=== PATIENT | female | born 1995 | race Caucasian/White ===

== ENCOUNTER 2017-10-07 14:57 | Emergency (ER) | payer OTHER ==
[~2017-10-07] VITALS: Ht 162.6 cm; Wt 125.8 kg
[2017-10-07 15:01] VITALS: TEMP 36.8; Ht 162.6 cm; Wt 125.8 kg
[2017-10-07 15:53] LABS: PREG INTERNAL NEGATIVE QC NEG CLEAR BACKGROUND; PREG INTERNAL POSITIVE QC POS CONTROL LINE
--- NOTE | 2017-10-07 16:15 | EMERGENCY ROOM VISIT NOTE ---
History First contact with patient: 15:03 Chief Complaint: TEST REQUEST Stated Complaint: TEST History of Present Illness The patient is a 22 year old female who presents to the Emergency Room with complaints of " test request". The patient states that she has had a faint positive urine test that was performed about 2 days ago. She states that her last menstrual cycle was at the end of July. She would like a blood confirmatory test for . She denies any other complaints. There has been no abdominal pain, vaginal bleeding or cramping. Review of Systems A complete 6-point Review of Systems was discussed with the patient, with pertinent positives and negatives listed in the History of Present Illness. All remaining Review of Systems questions can be considered negative unless otherwise specified. Past Medical/Surgical History Surgical Problems: (1) S/P ACL repair Family History Patient reports no known family medical history. Social History Smoking Status: Current Every Day Smoker Alcohol Use: none Drug Use: none Marital Status: single Housing Status: lives with family Occupation Status: unemployed, student Current/Historical Medications No Active Prescriptions or Reported Meds Physical Exam Vital Signs Date Time Temp Pulse Resp B/P (MAP) Pulse Ox O2 Delivery O2 Flow Rate FiO2 10/07/17 16:24 92 16 138/87 95 Room Air 10/07/17 15:01 36.8 92 16 163/91 99 Room Air Physical Exam VITAL SIGNS - Vital signs and nursing notes were reviewed. Hypertensive. GENERAL - 22-year-old female appearing her stated age who is in no acute distress. Communicates well with provider and answers questions appropriately. Medical Decision & Procedures Laboratory Results Test 10/07/17 15:20 Human Chorionic Gonadotropin, Qual NEG (NEG) Human Chorionic Gonadotropin, Quant < 1 mIU/mL Medical Decision Patient was seen and evaluated as above. She presents to us today with request of blood test. This was obtained with quantitative and qualitative. These were negative. She was informed upon their findings. She was discharged. In evaluation treatment this patient the following differential diagnoses were entertained: Encounter test request, positive test, negative test. Impression Primary Impression: examination or test, negative result Departure Information Dispostion Home / Self-Care Condition GOOD Prescriptions No Active Prescriptions or Reported Meds Referrals No Doctor, Assigned (PCP) Patient Instructions My [facility] Additional Instructions You were seen in the emergency department for a test request. Your blood hCG test is negative. Please follow-up with your family doctor. Please return with any new/concerning symptoms.
[2017-10-07 16:24] VITALS: BP 138/87; PULSE 92; O2SAT 95
== END 2017-10-07 16:26 | disposition home or self-care (01) ==
LOC: C.EDB 14:59 → C.EDD 16:26
DX: Z32.02 Encounter for pregnancy test, result negative (principal); F17.200 Nicotine dependence, unspecified, uncomplicated; Z98.890 Other specified postprocedural states

== ENCOUNTER 2018-03-03 13:45 | Emergency (ER) | payer OTHER ==
[~2018-03-03] VITALS: Ht 162.6 cm; Wt 125.0 kg
[2018-03-03 13:51] VITALS: TEMP 37.3; Ht 162.6 cm; Wt 125.0 kg
[2018-03-03] MEDS ORDERED: ONDANSETRON INJ 2 MG/ML 2 ML VIAL IV STA (14:06)
[2018-03-03] MEDS ORDERED: FENTANYL CITRATE INJ 50 MCG/1 ML 2 ML VIAL IV STA ×2 (14:06→16:16)
[2018-03-03 14:28] VITALS: O2SAT 98
[2018-03-03] MEDS ORDERED: OPTIRAY 320 IV PRN (14:30)
[2018-03-03 14:41] LABS: ISTAT CREATININE 0.8 mg/dl (0.6-1.3); ISTAT IONIZED CALCIUM 1.17 mmol/l (1.12-1.32); ISTAT POTASSIUM 3.8 mEq/L (3.3-5.0)
[2018-03-03 14:47] LABS: BASO % 0.1 %; BASO ABS # 0.02 K/uL (0-0.2); EOS % 1.9 %; HEMATOCRIT 42.8 % (37-47); HEMOGLOBIN 14.6 g/dL (12.0-16.0); IG# 0.07 K/uL (0.00-0.02); LYMPH % 15.3 %; LYMPH ABS # 2.46 K/uL (1.2-3.4); MEAN CELL VOLUME 88.8 fL (80-100); MEAN CORPUSCULAR HEMOGLOBIN 30.3 pg (25-34); MEAN CORPUSCULAR HGB CONC 34.1 g/dl (32-36); MEAN PLATELET VOLUME 9.5 fL (7.4-10.4); MONO % 4.9 %; MONO ABS # 0.78 K/uL (0.11-0.59); NEUT % 77.4 %; NEUT ABS # 12.44 K/uL (1.4-6.5); PLATELET COUNT 332 K/uL (130-400); RED CELL DISTRIBUTION WIDTH CV 13.6 % (11.5-14.5); RED CELL DISTRIBUTION WIDTH SD 44.5 fL (36.4-46.3); WHITE BLOOD COUNT 16.07 K/uL (4.8-10.8)
[2018-03-03 14:56] LABS: CALCIUM 9.4 mg/dl (8.5-10.1); CREATININE 0.88 mg/dl (0.60-1.20); POTASSIUM 3.7 mmol/L (3.5-5.1)
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
[2018-03-03] MEDS ORDERED: HYDR-5688 PO (16:59)
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
[2018-03-03 17:19] VITALS: BP 144/90; PULSE 96; O2SAT 96
== END 2018-03-03 17:24 | disposition home or self-care (01) ==
LOC: EDBD 13:45 → C.EDD 13:46
DX: T14.8XXA Other injury of unspecified body region, initial encounter (principal); V47.5XXA Car driver injured in collision with fixed or stationary object in traffic accident, initial encounter; Y92.410 Unspecified street and highway as the place of occurrence of the external cause; F17.210 Nicotine dependence, cigarettes, uncomplicated